=== PATIENT | male | born 1975 | race Caucasian/White ===

== ENCOUNTER 2017-12-31 19:33 | Emergency (ER) | payer OTHER ==
[2017-12-31 19:42] VITALS: BP 144/93
[2017-12-31] MEDS ORDERED: TRAZ-156 PO (19:44)
--- NOTE | 2017-12-31 19:47 | ER Report ---
History and Physical Time Seen By MD: 19:46 Hx. of Stated Complaint: patient was jogging this morning and started having pain in foot, he has pain and swelling and redness to left lateral foot. HPI/ROS CHIEF COMPLAINT: foot pain HISTORY OF PRESENT ILLNESS: This is a 42 year old male. He has pain, redness and swelling on the left lateral foot. Started minimally yesterday, but worse today. Hurst to bear weight. Some pain with palpation and range of motion. Had gone for a 3 1/2 mile run yesterday, was wearing old shoes, did not notice any injury or abnormal movements. Never had anything like this happen in the past. Allergies: Coded Allergies: No Known Drug Allergies (Unverified , 12/31/17) Home Meds Active Scripts Indomethacin (INDOMETHACIN) 25 Mg Capsule, 25 MG PO DIRECTED, #27 CAPSULE 0 Refills Take 2 capsuled 3 times a day for 3 days, then take 1 capsule 3 times a day for 3 more days, then stop. Prov:SCAR BABCOCK MD 12/31/17 Reported Medications Trazodone Hcl (TRAZODONE HCL) 50 Mg Tablet, 50 MG PO QHS 12/31/17 Reviewed Nurses Notes: Yes Constitutional Vital Sign - Last 24 Hours 12/31/17 19:42 Temp 98.0 Pulse 84 Resp 16 B/P (MAP) 144/93 Pulse Ox 93 O2 Delivery Room Air Physical Exam General: alert, no acute distress Skin: Red and warm with swelling over lateral side of foot. Musculoskeletal: No pain over medial or lateral malleoli. No pain over head of fifth metatarsal. Pain seems to be between the head of fifth and malleoli. He normal motor function. Neuro: normal sensation. Cardiovascular: Normal pulses and cap refill. Medical Decision Making EKG/Imaging Imaging FOOT 3 VIEW LEFT HISTORY: Lateral foot pain and swelling after run ADDITIONAL HISTORY: None. COMPARISON: None. FINDINGS: 3 views were obtained of the left foot. Alignment is anatomic. Joint spaces are well-maintained. There is no evidence of acute or subacute fracture. Minimal soft tissue swelling is present laterally. There is no evidence of a stress fracture although if this were of concern, bone scan could be considered. There are no lytic or sclerotic lesions. No significant degenerative changes or evidence of an inflammatory or erosive arthritis. IMPRESSION: 1. No evidence of acute fracture or stress fracture. 2. No significant degenerative changes or evidence of an inflammatory arthritis. 3. Mild soft tissue swelling. Report Dictated By: Tiff Turner MD at 12/31/2017 8:26 PM ED Course/Re-evaluation ED Course Reviewed the normal imaging findings with the patient. This may be a sprain or strain, or could be inflammatory such as gout or pseudogout. Recommended use of Indomethacin for the next 6 days. Decision to Disposition Date: December 31, 2017 Decision to Disposition Time: 20:38 Depart Departure Latest Vital Signs Vital Signs Date Time Temp Pulse Resp B/P (MAP) Pulse Ox O2 Delivery O2 Flow Rate FiO2 12/31/17 19:42 98.0 84 16 144/93 93 Room Air Impression: Primary Impression: Strain of foot, left Condition: Improved Disposition: HOME OR SELF-CARE New Scripts Indomethacin (INDOMETHACIN) 25 Mg Capsule 25 MG PO DIRECTED, #27 CAPSULE 0 Refills Take 2 capsuled 3 times a day for 3 days, then take 1 capsule 3 times a day for 3 more days, then stop. Prov: SCAR BABCOCK MD 12/31/17 Patient Instructions: Foot Sprain (ED) Additional Instructions: We have listed your diagnosis tonight as a foot strain. We cannot entirely rule out the possibility of other foot inflammatory condition such as gout or pseudogout. Take Indomethacin 25mg capsules, 2 tablets 3 times a day for 3 days then 1 capsule 3 times a day for 3 more days. Take this medicine with food to avoid upset stomach. When resting, keep the foot elevated. Apply ice for 15-20 minutes every hour or two while awake. Problem Qualifiers Primary Impression: Strain of foot, left Encounter type: initial encounter Qualified Codes: S96.912A - Strain of unspecified muscle and tendon at ankle and foot level, left foot, initial encounter SCAR BABCOCK MD December 31, 2017 19:47
--- NOTE | 2017-12-31 20:32 | RADIOLOGY IMAGING REPORT ---
FACILITY: [facility] PATIENT NAME: Lele Edgar : 1975 MR: [id number] V: [id number] EXAM DATE: ORDERING PHYSICIAN: SCAR BABCOCK TECHNOLOGIST: Location: [facility] [place] Patient: Lele Edgar : 1975 Visit/Account:[id number] Date of Sevice: 12/31/2017 FOOT 3 VIEW LEFT HISTORY: Lateral foot pain and swelling after run ADDITIONAL HISTORY: None. COMPARISON: None. FINDINGS: 3 views were obtained of the left foot. Alignment is anatomic. Joint spaces are well-maintained. Ther e is no evidence of acute or subacute fracture. Minimal soft tissue swelling is present laterally. Th ere is no evidence of a stress fracture although if this were of concern, bone scan could be consider ed. There are no lytic or sclerotic lesions. No significant degenerative changes or evidence of an inflam matory or erosive arthritis. IMPRESSION: 1. No evidence of acute fracture or stress fracture. 2. No significant degenerative changes or evidence of an inflammatory arthritis. 3. Mild soft tissue swelling. Report Dictated By: Tiff Turner MD at 12/31/2017 8:26 PM Report E-Signed By: Tiff Turner MD at 12/31/2017 8:28 PM WSN:[id number]
[2017-12-31] MEDS ORDERED: INDOMETHACIN 25 MG CAP PO ONE (20:40)
[2017-12-31] MEDS ORDERED: INDO-1 PO (20:42)
== END 2017-12-31 20:50 | disposition home or self-care (01) ==
LOC: ER 19:47
DX: S96.912A Strain of unspecified muscle and tendon at ankle and foot level, left foot, initial encounter (principal)
CPT/HCPCS: 99283

== ENCOUNTER 2018-05-03 15:57 | Emergency (ER) | payer OTHER ==
[~2018-05-03 15:57] MED LIST: INDO-21 PO; TRAZ50TA34 PO
--- NOTE | 2018-05-03 16:02 | ER Report ---
History and Physical Time Seen By MD: 16:02 HPI/ROS Lifting a heavy object yesterday and now with pain in his left neck. No blunt trauma. No focal neuro deficits. No midline c-spine pain. No CP or SOB Allergies: Coded Allergies: No Known Drug Allergies (Unverified , 05/03/18) Home Meds Active Scripts Diazepam (VALIUM) 5 Mg Tablet, 5 MG PO 2-3XD for Muscle Relaxant for 3 Days, #15 TAB Prov:AVELINO BAXTER MD 05/03/18 Ibuprofen (IBUPROFEN) 600 Mg Tablet, 1 TAB PO Q6H for 10 Days, #30 TAB Prov:AVELINO BAXTER MD 05/03/18 Reported Medications Trazodone Hcl (TRAZODONE HCL) 50 Mg Tablet, 50 MG PO QHS 12/31/17 Hx Substance Use Disorder: No Hx Alcohol Use: Yes (occassional) Constitutional Physical Exam General Appearance: The patient is alert, has no immediate need for airway protection and no current signs of toxicity. Eyes: Pupils equal and round no injection. Respiratory: Chest is non tender, lungs are clear to auscultation. Cardiac: regular rate and rhythm Musculoskeletal: No midline spinal TTP Neck: Neck is supple. No midline c-spine TTP. There is TTP and muscle spasm at the left trapezius muscle which reproduces the pain Extremities have full range of motion and are non tender. Skin: No rashes or lesions. Medical Decision Making ED Course/Re-evaluation ED Course Uncomplicated muscle spasm of the trapezius muscle. No evidence of infection. No midline spin TTP. No recent trauma Decision to Disposition Date: May 03, 2018 Decision to Disposition Time: 17:21 Depart Departure Latest Vital Signs Impression: Primary Impression: Trapezius muscle spasm Condition: Improved Disposition: HOME OR SELF-CARE New Scripts Diazepam (VALIUM) 5 Mg Tablet 5 MG PO 2-3XD for Muscle Relaxant for 3 Days, #15 TAB Prov: AVELINO BAXTER MD 05/03/18 Ibuprofen (IBUPROFEN) 600 Mg Tablet 1 TAB PO Q6H for 10 Days, #30 TAB Prov: AVELINO BAXTER MD 05/03/18 Patient Instructions: Muscle Spasm (ED) AVELINO BAXTER MD May 03, 2018 16:02
[2018-05-03 17:00] VITALS: BP 153/98
[2018-05-03] MEDS ORDERED: DIA5 PO (17:22)
[2018-05-03] MEDS ORDERED: IBUP600T22 PO (17:22)
== END 2018-05-03 17:43 | disposition home or self-care (01) ==
LOC: ER 16:06
DX: M62.838 Other muscle spasm (principal)
CPT/HCPCS: 99281